=== PATIENT | female | born 1980 | race Two or more races ===

== ENCOUNTER 2020-05-20 16:12 | Emergency (ER) | payer MEDICAID, OTHER ==
[~2020-05-20] VITALS: Ht 160 cm; Wt 79.4 kg
[2020-05-20 16:33] VITALS: BP 108/71
== END 2020-05-20 19:02 | disposition home or self-care (01) ==
LOC: ER 16:12 → EDBD 16:12 → ER 19:02
DX: S93.402A Sprain of unspecified ligament of left ankle, initial encounter (principal); W10.9XXA Fall (on) (from) unspecified stairs and steps, initial encounter; Y93.89 Activity, other specified; Y92.89 Other specified places as the place of occurrence of the external cause; Y99.8 Other external cause status
CPT/HCPCS: 73610; 99283; J7030

== ENCOUNTER 2020-09-18 11:57 | Emergency (ER) | payer MEDICAID ==
[~2020-09-18] VITALS: Ht 160 cm; Wt 81.6 kg
[2020-09-18 12:50] LABS: Basophils # (auto) 0.1 10 ^3/uL (0-0.2); Basophils % (auto) 1.9 % (0.0-2.0); Eosinophils # (auto) 0.1 10 ^3/uL (0-0.8); Hematocrit 38.4 % (36.0-46.0); Hemoglobin 12.9 g/dL (12.2-16.2); Lymphocytes # (auto) 1.9 10 ^3/uL (0.4-5.4); Lymphocytes % (auto) 31.8 % (10.0-50.0); Mean Corpuscular Hemoglobin 27.9 pg (28.0-32.0); Mean Corpuscular Hgb Conc. 33.7 g/dL (32.0-36.0); Mean Corpuscular Volume 82.9 fL (80.0-100.0); Monocytes # (auto) 0.4 10 ^3/uL (0-1.3); Monocytes % (auto) 7.2 % (0.0-12.0); Neutrophils # (auto) 3.5 10 ^3/uL (1.6-8.6); Neutrophils % (auto) 58.1 % (37.0-80.0); Nucleated Red Blood Cells % 0.1 %; Platelet Count (auto) 289 10^3/uL (140-450); Red Blood Cells 4.63 10^6/uL (4.0-5.20); Red Cell Distribution Width 15.5 % (11.8-14.3)
[2020-09-18 12:56] LABS: Potassium 3.9 mmol/L (3.5-5.1)
[2020-09-18 13:02] LABS: Albumin 3.9 g/dL (3.4-5.0); BUN/Creatinine Ratio 16.9; Bilirubin, Total 0.3 mg/dL (0.2-1.0); Calcium 9.6 mg/dL (8.5-10.1); Total Protein 7.1 g/dL (6.4-8.2)
[2020-09-18 13:20] VITALS: BP 107/82
== END 2020-09-18 13:22 | disposition home or self-care (01) ==
LOC: ER 11:57
DX: R10.31 Right lower quadrant pain (principal); K21.9 Gastro-esophageal reflux disease without esophagitis; E11.9 Type 2 diabetes mellitus without complications; E78.5 Hyperlipidemia, unspecified; F12.10 Cannabis abuse, uncomplicated; Z90.49 Acquired absence of other specified parts of digestive tract; Z90.710 Acquired absence of both cervix and uterus
CPT/HCPCS: 36415; 74176; 80053; 82150; 83690; 85025